=== PATIENT | male | born 2000 | race Caucasian/White ===

== ENCOUNTER 2024-12-09 12:53 | Emergency (ER) | payer OTHER ==
[~2024-12-09] VITALS: Ht 170.2 cm; Wt 90.7 kg
[2024-12-09] MEDS ORDERED: LIDOCAINE HCL/MPF 1% 30 ML VIAL IJ ONE (13:09)
[2024-12-09 14:10] VITALS: BP 118/76; TEMP 97.9; O2SAT 100
== END 2024-12-09 14:11 | disposition home or self-care (01) ==
LOC: ER 13:00
DX: S61.214A Laceration without foreign body of right ring finger without damage to nail, initial encounter (principal); S61.216A Laceration without foreign body of right little finger without damage to nail, initial encounter; K50.90 Crohn's disease, unspecified, without complications; Z88.7 Allergy status to serum and vaccine; W26.0XXA Contact with knife, initial encounter; Y93.G1 Activity, food preparation and clean up; Y92.89 Other specified places as the place of occurrence of the external cause; Y99.8 Other external cause status
CPT/HCPCS: 12001; 99282; J3490

== ENCOUNTER 2024-12-16 11:07 | Emergency (ER) | payer OTHER ==
[~2024-12-16] VITALS: Ht 170.2 cm; Wt 90.7 kg
[2024-12-16 11:12] VITALS: BP 127/65; TEMP 97.8
[2024-12-16 11:33] VITALS: O2SAT 97
== END 2024-12-16 11:34 | disposition home or self-care (01) ==
LOC: ER 11:12
DX: S61.411D Laceration without foreign body of right hand, subsequent encounter (principal); Z48.02 Encounter for removal of sutures; Z88.7 Allergy status to serum and vaccine; X58.XXXD Exposure to other specified factors, subsequent encounter